=== PATIENT | male | born 2005 ===

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

== ENCOUNTER 2023-02-21 17:01 | Emergency (ER) | payer SELFPAY ==
[2023-02-21 18:34] LABS: BASOPHILS PERCENT AUTO 0.2 % (0.0-1.5); EOSINOPHILS ABSOLUTE AUTO 0.1 K/uL (0.0-0.7); EOSINOPHILS PERCENT AUTO 1.1 % (0.0-7.0); HEMATOCRIT 44.8 % (38.0-50.0); HEMOGLOBIN 15.7 g/dL (13.0-17.0); LYMPHOCYTES ABSOLUTE AUTO 1.6 K/uL (0.6-2.4); LYMPHOCYTES PERCENT AUTO 14.1 % (16.0-40.0); MEAN CORPUSCULAR HEMOGLOBIN 29.2 pg (27.0-32.0); MEAN CORPUSCULAR VOLUME 83.3 fL (80.0-98.0); MONOCYTES ABSOLUTE AUTO 0.6 K/uL (0.0-0.8); MONOCYTES PERCENT AUTO 5.5 % (0.0-15.0); NEUTROPHILS PERCENT AUTO 79.1 % (48.0-80.0); NRBC ABSOLUTE 0 K/uL; PLATELET COUNT,PLT 279 K/uL (150-400); RED BLOOD CELL COUNT 5.38 M/uL (4.50-5.90); WHITE BLOOD CELL COUNT,WBC 11.36 K/uL (4.0-11.0)
[2023-02-21 18:57] LABS: ALBUMIN 4.5 g/dL (3.4-5.0); BILIRUBIN TOTAL 0.8 mg/dL (0.2-1.0); CALCIUM 8.5 mg/dL (8.5-10.1); CARBON DIOXIDE,CO2 26.4 mmol/L (21.0-32.0); CREATININE 1.1 mg/dL (0.8-1.3); EST CRCL DRUG DOSING (CG) 118.56 mL/min; POTASSIUM,K 3.5 mmol/L (3.5-5.1); PROTEIN TOTAL,TP 8.8 g/dL (6.4-8.2)
[2023-02-21 19:02] LABS: A/G RATIO 1.1 (0.9-1.6)
[2023-02-21 19:06] LABS: APPEARANCE,URINE SLT CLOUDY; GLUCOSE,URINE NEGATIVE (NEGATIVE); KETONES,URINE 15 mg/dL (NEGATIVE); LEUKOCYTE ESTERASE,URINE NEGATIVE (NEGATIVE); NITRITE,URINE NEGATIVE (NEGATIVE); OCCULT BLOOD,URINE NEGATIVE (NEGATIVE); PROTEIN,URINE >=300 mg/dL (NEGATIVE)
[2023-02-21 19:07] LABS: ACETAMINOPHEN <2.0 ug/mL; ETHANOL BLOOD MEDICAL 109 mg/dL; MAGNESIUM 2.1 mg/dL (1.8-2.4); SALICYLATE 0.4 mg/dL (0.0-20.0); T3 FREE 3.57 pg/mL (2.18-3.98); T4 FREE 1.51 ng/dL (0.76-1.46); TSH ULTRASENSITIVE 0.44 uIU/mL (0.36-3.74)
[2023-02-21 19:16] LABS: BILIRUBIN,URINE SMALL (NEGATIVE); COLOR,URINE AMBER; RBC,URINE 0-2 (0-2/HPF)
[2023-02-21 19:17] LABS: AMORPHOUS SEDIMENT,URINE FEW (NEGATIVE); BACTERIA,URINE FEW (NEGATIVE); EPITHELIAL CELLS,URINE OCCASIONAL (NONE-FEW); FINE GRANULAR CASTS,URINE OCCASIONAL (NEGATIVE); MUCUS,URINE MANY (NONE-MOD)
[2023-02-21 19:22] LABS: AMPHETAMINES SCREEN, URINE PRESUMPTIVE POSITIVE (CUTOFF=500); BARBITURATE SCREEN,URINE NEGATIVE (CUTOFF=200); BENZODIAZEPINES SCREEN,URINE NEGATIVE (CUTOFF=150); BUPRENORPHINE SCREEN,URINE NEGATIVE (CUTOFF=10); METHADONE SCREEN, URINE NEGATIVE (CUTOFF=200); METHAMPHETAMINES SCREEN, URINE PRESUMPTIVE POSITIVE (CUTOFF=500); OXYCODONE SCREEN,URINE NEGATIVE (CUT0FF=100); PCP SCREEN,URINE NEGATIVE (CUTOFF=25); PROPOXYPHENE SCREEN,URINE NEGATIVE (CUTOFF=300); THC SCREEN,URINE 20 NG/ML PRESUMPTIVE POSITIVE (CUTOFF=50)
[2023-02-21] MEDS ORDERED: Haloperidol Lactate 5 MG/ML SDV IM STA (20:43)
[2023-02-21] MEDS ORDERED: diphenhydrAMINE 50 MG/ML SDV IM STA (20:43)
[2023-02-21] MEDS ORDERED: LORazepam 2 MG/ML SDV IM STA (20:44)
== END 2023-02-21 23:00 ==
LOC: MW.ED 17:01
DX: R45.851 Suicidal ideations (principal); F15.10 Other stimulant abuse, uncomplicated; F14.10 Cocaine abuse, uncomplicated; F12.10 Cannabis abuse, uncomplicated; Z20.822 Contact with and (suspected) exposure to COVID-19
CPT/HCPCS: 36415; 80053; 80143; 80179; 80305; 80307; 81001; 83735; 84439; 84443; 84481; 85025; 87635; 96372; 99285; J1200; J1630; J2060; U0002

== ENCOUNTER 2025-01-23 02:23 | Emergency (ER) | payer SELFPAY | END 2025-01-23 02:34 | LOC: MW.ED 02:23 | DX: Z02.89 Encounter for other administrative examinations (principal); Z88.0 Allergy status to penicillin; Z88.1 Allergy status to other antibiotic agents; Z79.899 Other long term (current) drug therapy | CPT/HCPCS: 99282; 99283 ==